=== PATIENT | female | born 1960 | race Caucasian/White ===

== ENCOUNTER 2017-05-04 13:56 | Emergency (ER) | payer BC ==
[2017-05-04] MEDS ORDERED: ALLEGRA (14:08)
[2017-05-04] MEDS ORDERED: EFFEXOR (14:08)
[2017-05-04] MEDS ORDERED: VALIUM2 M1 (14:08)
== END 2017-05-04 15:09 | disposition home or self-care (01) ==
LOC: SED 13:56
DX: S61.411A Laceration without foreign body of right hand, initial encounter (principal); L03.113 Cellulitis of right upper limb; J45.909 Unspecified asthma, uncomplicated; W26.0XXA Contact with knife, initial encounter; Y92.69 Other specified industrial and construction area as the place of occurrence of the external cause; Y93.89 Activity, other specified; Y99.0 Civilian activity done for income or pay
CPT/HCPCS: 99283